=== PATIENT | female | born 1990 | race African-American/Black ===

== ENCOUNTER 2018-09-24 14:21 | Inpatient (IN) ==
[2018-09-24 15:20] LABS: Apearance,Urine CLEAR (Clear); Bilirubin,Urine Negative (Negative); Blood, Urine Large mg/dL (Negative); Glucose,Urine (UA) Negative (Negative); Ketones,Urine Negative (Negative); Mucus,Urine Occasional /LPF (Occasional); Nitrite,Urine Negative (Negative); Protein,Urine 30 MG/DL; RBC,Urine 531 /HPF (0-4); Squamous Epithelial Cell,Urine Occasional /HPF (0-10); Urine Color Yellow (Yellow); Urine Specific Gravity 1.013 (1.001-1.035); Urine Urobilinogen < 2.0 EU/DL (0.2-1.0)
[2018-09-24] MEDS ORDERED: BETAMETH SODIUM PHOS/ACETATE 30 MG/5 ML VIAL IM SCH (16:00)
[2018-09-24 16:30] LABS: Basophils % 0.2 % (0.0-0.8); Eosinophils # 0.3 10*3/uL (0.0-0.87); Hematocrit 28.4 VOL% (35.7-47.0); Hemoglobin 9.8 GM/DL (12.0-16.0); Immature Granulocytes % 0.6 %; Immature Granulocytes Absolute 0.08 #; Lymphocytes # 2.1 10*3/uL (1.4-4.0); Lymphocytes % 16.5 % (21.3-54.2); Mean Corpuscular HGB Conc 34.5 GM/DL (32-36); Mean Corpuscular Volume 84.5 FL (87-102); Mean Platelet Volume 9.8 FL (9.6-12.0); Neutrophils % 71.7 % (38.7-73.9); Platelet Count 199 T/CUMM (130-400); Red Blood Count 3.36 MC/CUMM (3.8-5.5); Red Cell Distribution Width 13.1 % (9.3-17.3); White Blood Count 12.4 T/CUMM (4-12)
[2018-09-24 16:58] LABS: Barbiturates Screen,Urine Negative (Negative); Benzodiazepines Screen,Urine Negative (Negative); Cannabinoid Screen,Urine Negative (Negative); Opiate Screen,Urine Negative (Negative); Phencyclidine Screen,Urine Negative (Negative)
[2018-09-24] MEDS: LACTATED RINGERS 1,000 ML IV SCH (20:00)
[2018-09-24] MEDS: BUTORPHANOL 1 MG/ML VIAL IV PRN (20:09)
[2018-09-25] MEDS: ACETAMINOPHEN 325 MG TABLET PO PRN ×2 (00:30→09:26)
[2018-09-25] MEDS: BUTORPHANOL 1 MG/ML VIAL IV PRN ×2 (04:42→20:21)
[2018-09-25] MEDS: LACTATED RINGERS 1,000 ML IV SCH ×2 (05:12→15:35)
[2018-09-25] MEDS ORDERED: ONDANSETRON 4 MG/2 ML VIAL IV PRN (10:49)
[2018-09-25 11:33] LABS: Basophils % 0.1 % (0.0-0.8); Eosinophils % 0.1 % (0.00-10.9); Hematocrit 28.1 VOL% (35.7-47.0); Hemoglobin 9.9 GM/DL (12.0-16.0); Immature Granulocytes % 0.8 %; Immature Granulocytes Absolute 0.13 #; Lymphocytes # 1.4 10*3/uL (1.4-4.0); Lymphocytes % 8.5 % (21.3-54.2); Mean Corpuscular HGB Conc 35.2 GM/DL (32-36); Mean Corpuscular Volume 83.1 FL (87-102); Mean Platelet Volume 9.9 FL (9.6-12.0); Monocytes % 7.8 % (1.7-12.7); Neutrophils % 82.7 % (38.7-73.9); Platelet Count 205 T/CUMM (130-400); Red Blood Count 3.38 MC/CUMM (3.8-5.5); White Blood Count 16.2 T/CUMM (4-12)
[2018-09-25] MEDS ORDERED: ALUMINUM/MAGNES/SIMETH MAX STR 30 ML UDCUP PO PRN (11:51)
[2018-09-25] MEDS ORDERED: CITRIC ACID/SODIUM CITRATE 30 ML UDCUP PO ONE (14:22)
[2018-09-25] MEDS ORDERED: ceFAZolin 2,000 MG in PREMIX 1 EACH IV ONE (14:22)
[2018-09-25] MEDS ORDERED: FAMOTIDINE 20 MG/2 ML VIAL IV ONE (14:22)
[2018-09-25] MEDS ORDERED: ceFAZolin 2,000 MG in SYRINGE 1 EACH IV ONE (14:30)
[2018-09-25] MEDS ORDERED: OXYTOCIN/LR 20 UNIT/1,000 ML BAG IV ONE ×2 (14:37→16:31)
[2018-09-25] MEDS ORDERED: SODIUM CHLORIDE 0.9% 100 ML IV ONE (14:42)
[2018-09-25] MEDS ORDERED: ceFAZolin 1,000 MG in SYRINGE 1 EACH IV ONE (14:59)
[2018-09-25] MEDS ORDERED: PHENYLEPHRINE 1 MG/10 ML SYRINGE IV ONE (15:50)
[2018-09-25] MEDS ORDERED: fentaNYL 100 MCG/2 ML VIAL ONE (15:51)
[2018-09-25] MEDS ORDERED: BUPIVACAINE SPINAL 0.75% 2 ML AMP SPINAL ONE (15:51)
[2018-09-25] MEDS ORDERED: MORPHINE 10 MG/10 ML VIAL ONE (15:51)
[2018-09-25] MEDS ORDERED: BUPIVACAINE 0.25% 50 ML VIAL ONE (15:52)
[2018-09-25] MEDS ORDERED: TRANEXAMIC ACID 1,000 MG/10 ML VIAL ONE (16:31)
[2018-09-25] MEDS ORDERED: miSOPROStol 200 MCG TABLET ONE (16:31)
[2018-09-25] MEDS ORDERED: CARBOPROST TROMETHAMINE 250 MCG/ML AMP IM ONE (16:32)
[2018-09-25] MEDS ORDERED: METHYLERGONOVINE 0.2 MG/1 ML AMP ONE (16:32)
[2018-09-25] MEDS ORDERED: OXYTOCIN 10 UNIT/ML VIAL ONE (17:20)
[2018-09-25 17:35] LABS: Cord Arterial Blood HCO3 25.7 MMOL/L
[2018-09-25 17:38] LABS: Cord Venous Blood HCO3 24.1 MMOL/L; Cord Venous Blood PCO2 43.3 MMHG
[2018-09-25 17:43] LABS: Amorphous Crystals,Urine Occasional /HPF (Few); Apearance,Urine Slightly Hazy (Clear); Bilirubin,Urine Negative (Negative); Blood, Urine Negative (Negative); Glucose,Urine (UA) Negative (Negative); Ketones,Urine Negative (Negative); Mucus,Urine Occasional /LPF (Occasional); Nitrite,Urine Negative (Negative); Protein,Urine Negative; RBC,Urine 2 /HPF (0-4); Squamous Epithelial Cell,Urine Occasional /HPF (0-10); Urine Color Yellow (Yellow); Urine Specific Gravity 1.016 (1.001-1.035); Urine Urobilinogen < 2.0 EU/DL (0.2-1.0)
[2018-09-25] MEDS: KETOROLAC 30 MG/1 ML VIAL IV SCH (19:44)
[2018-09-25] MEDS ORDERED: RHO(D) IMMUNE GLOBULIN 300 MCG SYRINGE IM ONE (21:23)
[2018-09-25] MEDS ORDERED: KETOROLAC 30 MG/1 ML VIAL IV SCH (21:23)
[2018-09-25] MEDS ORDERED: LACTATED RINGERS 1,000 ML IV SCH (23:45)
[2018-09-25] MEDS: DOCUSATE SODIUM 100 MG CAPSULE PO SCH (23:56)
[2018-09-26 01:39] LABS: Basophils % 0.1 % (0.0-0.8); Hemoglobin 7.4 GM/DL (12.0-16.0); Immature Granulocytes % 0.7 %; Immature Granulocytes Absolute 0.12 #; Lymphocytes # 1.2 10*3/uL (1.4-4.0); Lymphocytes % 7.3 % (21.3-54.2); Mean Corpuscular HGB Conc 35.2 GM/DL (32-36); Mean Corpuscular Volume 83.7 FL (87-102); Monocytes % 6.4 % (1.7-12.7); Neutrophils % 85.5 % (38.7-73.9); Platelet Count 159 T/CUMM (130-400); Red Blood Count 2.51 MC/CUMM (3.8-5.5); Red Cell Distribution Width 12.8 % (9.3-17.3); White Blood Count 16.4 T/CUMM (4-12)
[2018-09-26] MEDS: KETOROLAC 30 MG/1 ML VIAL IV SCH ×3 (02:05→15:59)
[2018-09-26] MEDS: MULTIVITAMIN (PRENATAL) TABLET PO SCH (07:50)
[2018-09-26] MEDS: SIMETHICONE CHEW 80 MG TABLET PO PRN ×2 (07:51→23:49)
[2018-09-26] MEDS: MAGNESIUM HYDROXIDE SUSP 30 ML UDCUP PO PRN ×2 (07:51→21:08)
[2018-09-26] MEDS: DOCUSATE SODIUM 100 MG CAPSULE PO SCH ×3 (07:54→21:09)
[2018-09-26 08:04] LABS: Basophils % 0.1 % (0.0-0.8); Hematocrit 20.5 VOL% (35.7-47.0); Hemoglobin 7.1 GM/DL (12.0-16.0); Immature Granulocytes Absolute 0.15 #; Lymphocytes # 1.6 10*3/uL (1.4-4.0); Lymphocytes % 10.6 % (21.3-54.2); Mean Corpuscular HGB Conc 34.6 GM/DL (32-36); Mean Corpuscular Volume 85.1 FL (87-102); Mean Platelet Volume 9.9 FL (9.6-12.0); Monocytes % 8.2 % (1.7-12.7); Neutrophils % 80.1 % (38.7-73.9); Platelet Count 157 T/CUMM (130-400); Red Blood Count 2.41 MC/CUMM (3.8-5.5); White Blood Count 15.2 T/CUMM (4-12)
[2018-09-26] MEDS: FERROUS SULFATE 325 MG TABLET PO SCH ×3 (08:04→21:08)
[2018-09-26] MEDS ORDERED: SODIUM CHLORIDE 0.9% 1,000 ML IV PRN (08:26)
[2018-09-26] MEDS ORDERED: diphenhydrAMINE CAP 50 MG CAPSULE PO ONE (08:27)
[2018-09-26] MEDS ORDERED: KETOROLAC 30 MG/1 ML VIAL ONE (15:18)
[2018-09-26] MEDS: IBUPROFEN 800 MG TABLET PO PRN (22:18)
[2018-09-27] MEDS: IBUPROFEN 800 MG TABLET PO PRN ×2 (04:23→14:01)
[2018-09-27 05:53] LABS: Basophils % 0.2 % (0.0-0.8); Eosinophils # 0.1 10*3/uL (0.0-0.87); Eosinophils % 0.4 % (0.00-10.9); Hemoglobin 8.5 GM/DL (12.0-16.0); Immature Granulocytes Absolute 0.14 #; Lymphocytes # 3.1 10*3/uL (1.4-4.0); Lymphocytes % 22.6 % (21.3-54.2); Mean Platelet Volume 10.3 FL (9.6-12.0); Monocytes % 8.8 % (1.7-12.7); Platelet Count 149 T/CUMM (130-400); Red Blood Count 2.94 MC/CUMM (3.8-5.5); Red Cell Distribution Width 13.6 % (9.3-17.3); White Blood Count 13.7 T/CUMM (4-12)
[2018-09-27] MEDS ORDERED: ALUMINUM/MAGNES/SIMETH MAX STR 30 ML UDCUP PO PRN (06:21)
[2018-09-27] MEDS ORDERED: MAGNESIUM CITRATE 300 ML BOTTLE PO ONE (09:03)
[2018-09-27] MEDS: DOCUSATE SODIUM 100 MG CAPSULE PO SCH ×2 (09:59→20:45)
[2018-09-27] MEDS: FERROUS SULFATE 325 MG TABLET PO SCH ×3 (09:59→20:45)
[2018-09-27] MEDS: SIMETHICONE CHEW 80 MG TABLET PO PRN (09:59)
[2018-09-27] MEDS: MULTIVITAMIN (PRENATAL) TABLET PO SCH (09:59)
[2018-09-28] MEDS: IBUPROFEN 800 MG TABLET PO PRN (02:10)
[2018-09-28 07:28] VITALS: BP 116/72
[2018-09-28] MEDS ORDERED: DIPH/TET/ACEL PERT BOOSTER VACCINE 0.5 ML VIAL IM ONE (08:44)
[2018-09-28] MEDS: DOCUSATE SODIUM 100 MG CAPSULE PO SCH (09:33)
[2018-09-28] MEDS: MULTIVITAMIN (PRENATAL) TABLET PO SCH (09:33)
[2018-09-28] MEDS: FERROUS SULFATE 325 MG TABLET PO SCH (09:33)
[2018-09-28] MEDS: SIMETHICONE CHEW 80 MG TABLET PO PRN (09:33)
[2018-09-28] MEDS: MAGNESIUM HYDROXIDE SUSP 30 ML UDCUP PO PRN (09:33)
== END 2018-09-28 11:10 | disposition home or self-care (01) | DRG 540 ==
LOC: N.LDOUT 14:21 → N.LD 14:23 → N.OB 09-25 21:43
PROVIDERS: ADMIT Obstetrics & Gynecology; ATTEND Obstetrics & Gynecology